=== PATIENT | male | born 1960 | race Caucasian/White ===

== ENCOUNTER 2017-03-25 16:36 | Emergency (ER) | payer BC, OTHER ==
[2017-03-25] MEDS ORDERED: Diphtheria,Pertussis(Acell),Tetanus Vaccine 0.5 ML SDV IM ONE (16:50)
[2017-03-25 17:00] VITALS: BP 116/79
[2017-03-25] MEDS ORDERED: Bacitracin Oint 1 GM U/D Packet TOP ONE (17:09)
--- NOTE | 2017-03-25 17:17 | EDM.PDOC ---
[id number] 4d FISH HOOK Time Seen by Provider: 03/25/17 16:55 Source of Information: Reports: Patient History Limitations: Reports: No Limitations - History of Present Illness INITIAL COMMENTS - FREE TEXT/NARRATIVE: 56-year-old male with a fish hook embedded into the palmar surface of the index finger left hand. Onset: Today Location: Reports: Upper Extremity, Left - Related Data Allergies Allergy/AdvReac Type Severity Reaction Status Date / Time sulfamethoxazole Allergy Rash Verified 03/25/17 17:03 [From Bactrim] trimethoprim [From Bactrim] Allergy Rash Verified 03/25/17 17:03 Home Meds: Home Meds Aspirin 1 tab PO DAILY 03/25/17 [History] Cetirizine [ZyrTEC] 1 tab PO DAILY 03/25/17 [History] Past Medical History HEENT History: Reports: Impaired Vision Respiratory History: Reports: Sleep Apnea Other Respiratory History: uses cpap Social & Family History - Tobacco Use Smoking Status *Q: Never Smoker - Recreational Drug Use Recreational Drug Use: No ED ROS GENERAL - Review of Systems Review Of Systems: See Below Respiratory: Denies: Shortness of Breath GI/Abdominal: Denies: Nausea, Vomiting Neurological: Reports: No Symptoms Psychiatric: Reports: No Symptoms ED EXAM, SKIN/RASH Exam: See Below Exam Limited By: No Limitations General Appearance: Alert, No Apparent Distress Respiratory/Chest: No Respiratory Distress Extremities: Other (Remainder of exam is limited to the left hand. The patient has one violet of a treble hook embedded into the palmar surface of the distal finger, the point of the hook has penetrated through partially.) Course - Vital Signs Last Recorded V/S: Last Vital Signs Temp 98.1 F 03/25/17 17:02 Pulse 71 03/25/17 17:02 Resp 14 03/25/17 17:02 BP 116/79 03/25/17 17:02 Pulse Ox 95 03/25/17 17:02 - Orders/Labs/Meds Orders: Active Orders 24 hr Category Date Time Status Vaccines to be Administered [RC] PER UNIT ROUTINE Care 03/25/17 16:50 Active Meds: Medications Discontinued Medications Generic Name Dose Route Start Last Admin Trade Name Freq PRN Reason Stop Dose Admin Bacitracin 1 dose 03/25/17 17:09 03/25/17 17:13 Bacitracin Oint 1 Gm TOP 03/25/17 17:10 1 dose ONETIME ONE Administration Diphtheria/Tetanus/Acell Pertussis 0.5 ml 03/25/17 16:50 03/25/17 17:08 Adacel IM 03/25/17 16:51 0.5 ml .ONCE ONE Administration Lidocaine HCl 5 ml 03/25/17 16:50 03/25/17 17:08 Xylocaine-Mpf 1% INJECT 03/25/17 16:51 5 ml ONETIME ONE Administration - Re-Assessments/Exams Free Text/Narrative Re-Assessment/Exam: 03/25/17 17:16 The area was sterilized with alcohol, infiltrated with a small amount of 1% lidocaine and the hook was grasped at the distal end with a needle nunes and pulled through. The area was again sterilized thoroughly with alcohol, a small amount of bacitracin was applied and he was given a tetanus booster. Departure - Departure Time of Disposition: 17:27 Disposition: Home, Self-Care 01 Condition: Good Clinical Impression: [place] injury to finger Qualifiers: Encounter type: initial encounter Laterality: left Qualified Code(s): S69.92XA - Unspecified injury of left wrist, hand and finger(s), initial encounter - Discharge Information Instructions: Puncture Wound, [id number] Referrals: PCP,None [Primary Care Provider] - Forms: ED Department Discharge Care Plan Goals: Keep the wound covered and clean while healing. Recheck if concerns of infection or not healing satisfactorily. - My Orders Last 24 Hours: My Active Orders 03/25/17 16:50 Vaccines to be Administered [RC] PER UNIT ROUTINE - Assessment/Plan Last 24 Hours: My Active Orders 03/25/17 16:50 Vaccines to be Administered [RC] PER UNIT ROUTINE
== END 2017-03-25 17:27 | disposition home or self-care (01) ==
LOC: JP.ED 16:36
DX: S69.92XA Unspecified injury of left wrist, hand and finger(s), initial encounter (principal); W45.8XXA Other foreign body or object entering through skin, initial encounter; Z79.82 Long term (current) use of aspirin; Z79.899 Other long term (current) drug therapy; Z88.2 Allergy status to sulfonamides; Z88.1 Allergy status to other antibiotic agents
CPT/HCPCS: 90471; 90715; 99282-25